=== PATIENT | female | born 1985 | race Caucasian/White ===

== ENCOUNTER → 2019-12-07 12:50 | Outpatient (BNVA) | payer BC, SELFPAY | PROVIDERS: Family Provider Family Medicine; Visit Provider Obstetrics & Gynecology | DX: Z78.9 Other specified health status (principal); Z12.4 Encounter for screening for malignant neoplasm of cervix; N81.10 Cystocele, unspecified; N39.3 Stress incontinence (female) (male) | CPT/HCPCS: 88175 ==

== ENCOUNTER 2020-01-02 10:32 | Observation (INO) | payer BC, SELFPAY ==
[2020-01-01 10:42] VITALS: BMI 29.5
--- NOTE | 2020-01-01 10:56 | P.ANESASSM_ITS ---
Pre-Anesthetic Assessment Pre-Anesthetic Assessment: Height/Weight: Height 1.55 m Weight 70.76 kg Preop Diagnosis: Incontinence Proposed Procedure: Operation Date: 01/02/20 08:15 Proposed Procedures p Anterior Repair Anterior Colporrhaphy 09104 93143 N81.10 N39.3(Not Applicable) - Good Jimenez MD s Sling midurethral(Not Applicable) - Good Jimenez MD Familial anesthetic complications: No trouble Social: Social History: No alcohol and No tobacco Exam: Pre-Anes Outpt Exam: alert, oriented x 3, clear to auscultation bilaterally and regular rate & rhythm Airway: Cervical ROM: WNL MP: 2 Dentition: Full Pulmonary: Pulmonary: None reported CV/HEM: CV/HEM: None reported : : None reported Hepatic: Hepatic: None reported GI: GI: None reported Metabolic: Metabolic: None reported Musc/skel: Musc/skel: None reported Neuropsych: Neuropsych: None reported Anesthetic Plan: ASA status: 1 Anesthesia: General Risk of > 500 ml blood loss (7ml/kg in children): No PFSH Anesthesia PFSH: Social History Smoking and tobacco status: never smoked Alcohol intake: never 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
[2020-01-01 11:02] LABS: OR HCG Qualitative Urine Negative (Negative)
[2020-01-02] VITALS (17 sets, daily range): BP systolic 94–128; BP diastolic 61–83; PULSE 70–124; RESP 13–18; TEMP 36.4–37.3; O2SAT 96–100
--- NOTE | 2020-01-02 07:14 | W.PM.OPSUD ---
Surgery/Procedure H&P Update DATE OF PROCEDURE: January 02, 2020 DATE H&P PERFORMED: 12/24/19 H&P UPDATE INFORMATION: I have reviewed H&P completed within last 30 days and I have examined patient prior to procedure PREOP DIAGNOSIS: Cystocele stage III PLANNED PROCEDURE: Operation Date: 01/02/20 08:15 Proposed Procedures p Anterior Repair Anterior Colporrhaphy [id number] N81.10 N39.3(Not Applicable) - Good Jimenez MD s Sling midurethral(Not Applicable) - Good Jimenez MD
[2020-01-02 07:17] LABS: OR HCG Qualitative Urine Negative (Negative)
[2020-01-02] MEDS: ketorolac 30 mg/mL INJ IVP ×4 (07:29→23:26)
[2020-01-02] MEDS: scopolamine 1.5 Patch 1 PATCH TRANSDERMA (07:29)
[2020-01-02] MEDS: sodium chloride 0.9% 1,000 ML 30 ML IV (07:29)
[2020-01-02 07:40] LABS: Basophils % 0.2 %; Eosinophils # 0.1 10^3/uL (0.0-0.8); Eosinophils % 1.7 %; Hematocrit 38.9 % (37.0-47.0); Hemoglobin 12.6 g/dL (11.5-15.3); Lymphocytes # 1.8 10^3/uL (0.8-4.8); Lymphocytes % 21.7 %; Mean Corpuscular HGB Conc 32.4 g/dL (30.0-36.0); Mean Corpuscular Hemoglobin 28.3 pg (28.0-34.0); Mean Corpuscular Volume 87.4 fL (81-99); Mean Platelet Volume 10.1 fL (7.4-10.4); Monocytes # 0.5 10^3/uL (0.2-0.9); Neutrophils # 5.8 10^3/uL (1.8-7.7); Nucleated Red Blood Cells % 0 %; Platelet Count 272 10^3/cmm (130-400); Red Blood Count 4.45 10^6/uL (4.1-5.3); Red Cell Distribution Width 13.3 % (12.1-15.1); White Blood Count 8.2 10^3/uL (4.0-10.0)
--- NOTE | 2020-01-02 07:52 | P.ANESUD_ITS ---
Pre-Anesthetic Update Pre-Anesthetic Assessment: Date of Surgery/Procedure: 01/02/20 Preop Thuy gnosis: Cystocele stage III Proposed Procedure: Operation Date: 01/02/20 08:15 Proposed Procedures s Anterior Repair Anterior Colporrhaphy [id number] N81.10 N39.3(Not Applicable) - Good Jimenez MD s Sling midurethral(Not Applicable) - Good Jimenez MD p Total Vaginal Hysterectomy(Not Applicable) - Good Jimenez MD Any changes to Pre-Anesthetic Assessment?: No Last Intake: Intake Last Liquid Date 01/01/20 Last Liquid Time 22:00 Last Solid Date 01/01/20 Last Solid Time 22:00 Labs Last 48hrs: Laboratory Results - last 48 hr 01/01/20 01/02/20 01/02/20 10:48 06:57 07:13 WBC 8.2 RBC 4.45 Hgb 12.6 Hct 38.9 MCV 87.4 MCH 28.3 MCHC 32.4 RDW 13.3 Plt Count 272 MPV 10.1 Neut % (Auto) 70.0 Lymph % (Auto) 21.7 [place] % (Auto) 6.0 Eos % (Auto) 1.7 Baso % (Auto) 0.2 Neut # (Auto) 5.8 Lymph # (Auto) 1.8 [place] # (Auto) 0.5 Eos # (Auto) 0.1 Baso # (Auto) 0.0 Nucleated RBC % (a uto) 0 Nucleated RBCs # 0.0 Urine HCG, Qual Negative Negative Vitals: Temperature 98.0 F 01/02/20 07:03 Temperature Source Temporal Artery S can 01/02/20 07:03 Pulse Rate 79 01/02/20 07:03 Pulse Rhythm 01/02/20 07:03 Pulse Strength 3+ Normal 01/02/20 07:03 Respiratory Rate 18 01/02/20 07:03 Blood Pressure 128/75 01/02/20 07:03 Blood Pressure Lacie n 92 01/02/20 07:03 Pulse Oximetry 100 01/02/20 07:03 Oxygen Delivery Me thod 01/02/20 07:03 Exam: Pre-Anes Outpt Exam: alert, oriented x 3, clear to auscultation bilaterally and regular rate & rhythm Cardiac Studies: No Data to Display
[2020-01-02 07:55] LABS: Alanine Aminotransferase 7 U/L (0-33); Albumin Level 4.7 g/dL (3.5-5.2); Alkaline Phosphatase 84 IU/L (35-105); Anion Gap 12.9 (5-19); Aspartate Amino Transferase 15 U/L (0-32); Blood Urea Nitrogen 11 mg/dL (6-20); Calcium 9.6 mg/dL (8.5-10.5); Carbon Dioxide 25 mmol/L (22-29); Chloride 104 mmol/L (98-107); Globulin 3.2 g/dL (1.3-4.6); Glomerular Filtration Rate 81.2 mL/min (90-130); Glucose 89 mg/dL (65-115); Osmolality Calculated 282 mOsm/kg (285-295); Potassium 3.9 mmol/L (3.5-5.1); Sodium 138 mmol/L (136-145); Total Bilirubin 0.2 mg/dL (0.15-1.2); Total Protein 7.9 g/dL (6.6-8.7)
--- NOTE | 2020-01-02 08:54 | SUR.OPER ---
murdock inserted by dr. stevens
[2020-01-02] MEDS: estrogens Conjugated Cream 30 gm 1 APPLIC VAGINAL (09:52)
--- NOTE | 2020-01-02 10:31 | SUR.PHASEI ---
1029 PATIENT TO PACU AT THIS TIME. RR EVEN AND UNLABORED, PLACED ON SIMPLE MASK AT 8L, SPO2 100%. PATIENT NOTED TO BE SLEEPING, PROTECTING AIRWAY. SPEARS CATH IN PLACE.
--- NOTE | 2020-01-02 10:35 | P.OP_ITS ---
Operative Report Date of procedure: January 02, 2020 Pre-op Diagnosis: Cystocele stage III Post-op diagnosis: same Procedure Done: total vaginal hysterectomy. Anterior colporrhaphy with mid urethral sling. Specimens removed/disposition: The uterus Surgeon: Good Jimenez Anesthesia: General Estimated blood loss (mL): 200 IV fluids (mL): 850 Urine output (mL): 100 Complications: none Condition: stable Disposition: PACU Brief History: 34-year-old female with urinary stress incontinence, cystocele stage III. Procedure: After informed consent and risks, benefits, indications and alternatives reviewed with the patient was taken to the operating room. The patient was placed in dorsal lithotomy position prepped, and draped in the usual sterile fashion. The pre-procedure timeout verifying the correct patient, procedure, site and side, could not requirements was performed and acknowledge by the OR team. A Perez catheter was placed. A Bookwalter vaginal retractor was placed into the vagina in usual manner visualize the cervix. Cervix was grasped with a single tooth tenaculum and circumferentially infiltrated with 1% Xylocaine with epinephrine. Then cervix was circumferentially incised with bovie and the bladder was dissected off the pubovesical cervical fascia ant eriorly with a sponge stick and Metzenbaum scissors. The anterior peritoneal reflection was identified and the anterior cul-de-sac was entered sharply with Metzenbaum scissors. The same procedure was performed posteriorly and a posterior colpotomy was made through the posterior cul-de-sac space without difficulty and the posterior blade of the Bookwalter vaginal retractor was advanced posteriorly into the cul-de-sac. At this time, the left and right uterosacral ligaments were isolated and ligated with 0 Vicryl. The Enseal device was placed over the uterosacral ligaments on either side and was then used in a serial fashion up through the cardinal ligaments bilaterally cross-clamped, cut, and sealed with the Enseal device. Finally, the uterine arteries were cross-clamped, cut, sealed and ligated with the Enseal device. Hemostasis was assured. The broad ligaments were then serially clamped, sealed and cut with the Enseal device on both sides. Excellent hemostasis was visualized. Both cornua were clamped, sealed and cut with the Enseal device. Then the pedicles were then suture ligated with excellent hemostasis. The uterus was excised and submitted for pathologic evaluation. No other abnormalities were noted in the pelvic cavity. The peritoneum was then closed in a pursestring fashion with 0 Vicryl suture. The vaginal cuff angles were closed with [id number] #0 Vicryl suture on both sides and transfixed with the ipsilateral cardinal and uterosacral ligaments. The patient was given indigo carmine. The remainder of the vaginal cuff was closed with #0 Vicryl in a running locked fashion. Then proceeded to perform the mid urethral sling and anterior colporrhaphy. A vertical midline incision was made beneath the midurethra, nearly 1.5 cm length. Careful submucosal dissection was performed bilaterally up to the interior portion of the inferior pubic ramus. The insertion of adductor longus tendon on the patient?s pubic ramus was identified as reference land jose. Palpated the notch along the internal edge of ischiopubic ramus where the adductor longus tendon and the inferior pubic ramus meet. The needle of the SIS inserted aiming at the location of this notch. One of the integrated self- fixating tips place onto the needle by sliding it over the end of the needle. The needle/sling assembly was inserted toward the location of identified reference notch making sure that the flat of the handle is perpendicular to the desired path. The needle was tracked along the posterior surface of the ischiopubic ramus until the midline jose on the mesh is approximately at the midline position under the urethra. The needle was removed and the same was repeated on the contralateral side until the appropriate sling tension under the urethra was achieved ensuring that the mesh lays flat. The needle was removed and vaginal incision was closed in a running interlocking fashion with 2-0 Vicryl. Then vaginal mucosa was then injected in the midline with normal saline. The vaginal mucosa was scored in the midline with the Bovie approximately 1 cm medial to the urethral meatus to 1 cm distal to the [vaginal cuff/cervix]. This vaginal mucosa was then undermined and then incised in the midline with the Metzenbaum scissors. The lateral aspects of the vaginal mucosa were then grasped with the Allis clamps and the vaginal mucosa was then dissected off the underlying fascia with the Metzenbaum scissors. Again, there was noted to be quite a bit of oozing at the incision, which was controlled with cautery. After adequate dissection was performed, bilaterally. Suture is placed at distal end of graft and placed towards vaginal cuff. Final suture is placed on proximal portion of the graft to complete the placement overlying the bladder. Then Interrupted vertical mattress sutures of 0 Vicryl were used to elevate the cystocele superiorly. The excessive vaginal mucosa was then trimmed with the Metzenbaum scissors and the vaginal mucosa was then reapproximated in the running interlocking fashion with 2-0 Vicryl. At this time, instruments were removed from the vagina at hemostasis assured. Then the Perez catheter was removed and cystoscope was inserted. The bladder was filled with sterile water. Complete evaluation of the bladder mucosa was performed noting no lacerations, dimpling, tears, bleeding of the mucosa or muscular layers. Both ureteral orifices were identified. Prompt excretion of blue urine from both ureteral orifices was noted. Cystoscope was withdrawn. Perez catheter was then placed yielding clear kirsty urine. A vaginal packing wi th Premarin cream was placed and the patient was taken out of dorsal lithotomy position and awakened from the general anesthesia. The patient tolerated the procedure well and was taken to the PACU recovery room in a stable condition. Sponge, lap, needle and instruments counts were correct x3.
--- NOTE | 2020-01-02 11:00 | SUR.PHASEI ---
1059 PATIENT TO OB AT THIS TIME. RR EVEN AND UNLABORED. SPEARS IN PLACE. PATIENT TOLERATING ICE CHIPS, DENIES PAIN.
--- NOTE | 2020-01-02 11:04 | PM.PACU ---
PACU note Post-Anesthesia Exam: awake and vital signs stable Disposition: discharged
[2020-01-02] MEDS: ondansetron 2 mg/ML SDV 2 mL 4 MG IVP (11:34)
[2020-01-02] MEDS: HYDROcodone-acetaminophen 5-325 mg Tablet PO ×3 (11:35→22:38)
[2020-01-02] MEDS: oxyCODONE-APAP 5-325 mg Tablet PO (17:49)
[2020-01-02] MEDS: docusate sodium 100 mg Capsule PO (17:50)
[2020-01-02] MEDS: dextrose 5%-lactated ringers 1,000 ML 125 ML IV ×2 (17:50→23:27)
[2020-01-03 05:27] VITALS: BP 97/62; PULSE 68; RESP 18; TEMP 37.1
[2020-01-03] MEDS: ketorolac 30 mg/mL INJ IVP (05:37)
[2020-01-03 05:42] LABS: Hematocrit 27.4 % (37.0-47.0); Mean Corpuscular HGB Conc 32.8 g/dL (30.0-36.0); Mean Corpuscular Hemoglobin 29.2 pg (28.0-34.0); Platelet Count 188 10^3/cmm (130-400); Red Blood Count 3.08 10^6/uL (4.1-5.3); Red Cell Distribution Width 13.6 % (12.1-15.1); White Blood Count 10.3 10^3/uL (4.0-10.0)
[2020-01-03] MEDS: docusate sodium 100 mg Capsule PO (09:43)
[2020-01-03] MEDS: HYDROcodone-acetaminophen 5-325 mg Tablet PO ×2 (09:43→16:05)
[2020-01-03 09:45] VITALS: BP 99/64; PULSE 111; RESP 16; TEMP 36.8; O2SAT 98
--- NOTE | 2020-01-03 10:20 | PC.NURSE ---
01/03/[address] Jimenez regarding removing patient's murdock and vaginal packing. Dr. Jimenez states that is fine. Patient may also undergo bladder trials per protocol. Patient must have less than 150ml residual post void.
--- NOTE | 2020-01-03 10:21 | PC.NURSE ---
01/03/2020 0948 Perez catheter removed, vaginal packing removed. Patient educated extensively on bladder trials per protocol and verbalized understanding. Patient provided several liquids and hat placed in toilet. Will continue to monitor and follow up as needed.
--- NOTE | 2020-01-03 11:01 | PM.OBGYDC ---
Discharge Providers CLINICAL ATHLETIC INSTRUCTOR Date of Admission: 01/02/20 10:32 Date of Discharge: 01/03/20 Attending Provider at Admission: Good Jimenez MD Attending Provider at Discharge: Good Jimenez MD Primary Care Provider: Brian Arauz MD Diagnoses at Discharge Discharge Diagnosis (1) POP-Q stage 2 cystocele: Status: Acute Problem details: patient is status post total vaginal hysterectomy with anterior colporrhaphy and mid urethral sling. (2) TAJ (stress urinary incontinence, female): Status: Acute Reason for Visit Reason for Visit: Reason For Visit: Cystocele statge 2 stress urinary incontinence Hospital Course Hospital Course: the patient was admitted for planned total vaginal hysterectomy with anterior colporrhaphy and mid urethral sling. The procedures were performed without complication overnight observation was uneventful. ER within normal limits. Is afebrile hemodynamically stable. Tolerating diet well. Ambulating without difficulty. Pain under control with medication. Physical Exam Narrative: EXAM NARRATIVE: GA: Alert and oriented ?3. HEENT: WNL. Heart: Regular rate and rhythm. Lungs: Clear to auscultation bilaterally. Abdomen: Bowel sounds present, nontender, minimal tenderness. COFFIN MAKER: minimal spotting bleeding. Extremities: No edema, no cyanosis, no calves pain. Urinary Catheter Management^: Perez: Cath Placed During This Visit: yes Urinary Catheter Date of Insertion: 01/02/20 Urinary Catheter Time of Insertion: 09:00 Discharge Data Data Completed and Pending: Labs from last 24 hours 01/03/20 05:26 WBC 10.3 H RBC 3.08 L Hgb 9.0 L Hct 27.4 L MCV 89.0 MCH 29.2 MCHC 32.8 RDW 13.6 Plt Count 188 MPV 10.0 Vitals: Last Vital Signs Temp 98.3 F 01/03/20 09:45 Pulse 111 H 01/03/20 09:45 Resp 16 01/03/20 09:45 BP 99/64 01/03/20 09:45 Pulse Ox 98 01/03/20 09:45 Discharge Plan Discharge Patient Disposition: Home, Self-Care Condition: Stable Prescriptions: [place] 5-325 mg tablet 1 tab PO Q4H PRN (Reason: pain) Qty: 30 RF: 0 Continued ferrous sulfate 325 mg (65 mg iron) tablet 65 mg PO BID RF: 0 Discharge Orders: Discharge Order (Routine); Ordered 01/03/20 Ordered By: Good Jimenez Discharge Diet: Regular Discharge Activity: Increase activity as tolerated Activity Restrictions/Additional Instructions: Pelvic rest for 6 weeks (no sex, no tampons, no vaginal douches). Return to the emergency room if any fever, increased bleeding or pain. Discharge Attestations CLINICAL ATHLETIC INSTRUCTOR Time Spent in Discharge Care*: greater than 30 min Specific Discharge Activities: Specific discharge activities: educating patient and educating and/or supporting family/caregiver Time Spent in Smoking Cessation: Time spent discussing smoking cessation with patient: 3 to 10 minutes Coding Level of Care Code Acute Still Cleaner for Chg Fwd History Expanded Problem Focused Exam Expanded Problem Focused Medical Decision Making Moderate Complexity Diagnoses POP-Q stage 2 cystocele N81.10 TAJ (stress urinary incontinence, female) N39.3 Time Spent (min) 50
--- NOTE | 2020-01-03 14:48 | ANE.PACU2 ---
 Inpatient post-anesthesia follow up: Airway intact: Yes Vital signs: Temperature 98.3 F Pulse Rate 111 Respiratory Rate 16 Blood Pressure 99/64 Pulse Oximetry 98 Oxygen Delivery Me thod Room Air Oxygen Flow Rate 8 Fraction of Inspir ed Oxygen Hydration adequate: Yes Nausea and vomiting: No Pain level: 4 Mental status: Baseline
[2020-01-03 16:00] VITALS: BP 109/71; PULSE 105; RESP 18; TEMP 36.8; O2SAT 97
[2020-01-03 16:12] VITALS: BP 109/71; PULSE 105; RESP 18; TEMP 36.8; O2SAT 97
== END 2020-01-03 16:13 | disposition home or self-care (01) ==
LOC: OBGYN 10:33
PROVIDERS: Anesthesiology; Admitting Provider Obstetrics & Gynecology; PCP Family Medicine; Visit Provider Obstetrics & Gynecology
PROC: 0JQC0ZZ Repair Pelvic Region Subcutaneous Tissue and Fascia, Open Approach (ICD-10-PCS; CPT 57240; principal; 2020-01-02 08:15)
PROC: (CPT 57288; 2020-01-02 08:15)
PROC: 0TJB8ZZ Inspection of Bladder, Via Natural or Artificial Opening Endoscopic (ICD-10-PCS; CPT 52000; 2020-01-02 08:15)
DX: N81.10 Cystocele, unspecified (principal); N39.3 Stress incontinence (female) (male); I10 Essential (primary) hypertension; Z82.49 Family history of ischemic heart disease and other diseases of the circulatory system
CPT/HCPCS: 57240; 57267; 57288; 58260; 12345; 36415; 51798; 80053; 81025; 84703; 85025; 85027; 86850; 86900; 88307; 96360; 96361; 96374; 96375; C1713; G0378; J0690; J1100; J1885; J2001; J2250; J2405; J2704; J3010; J3490; J7030

== ENCOUNTER → 2021-03-02 16:57 | Outpatient (BNVA) | payer OTHER, SELFPAY | PROVIDERS: PCP Family Medicine; Visit Provider Nurse Practitioner Family | DX: L30.9 Dermatitis, unspecified (principal) | CPT/HCPCS: 80053; 84443; 85025 ==

== ENCOUNTER → 2022-02-24 10:14 | Outpatient (BNVA) | payer SELFPAY | PROVIDERS: PCP Family Medicine; Visit Provider Family Medicine | DX: G57.93 Unspecified mononeuropathy of bilateral lower limbs (principal); R60.9 Edema, unspecified | CPT/HCPCS: 80053; 82306; 82607; 83540; 84443; 85025 ==

== ENCOUNTER → 2022-06-08 15:59 | Outpatient (BNVA) | payer OTHER, SELFPAY | PROVIDERS: PCP Family Medicine; Referring Provider Family Medicine; Visit Provider Podiatrist Foot & Ankle Surgery | DX: M72.2 Plantar fascial fibromatosis (principal) | CPT/HCPCS: 73630 ==

== ENCOUNTER → 2022-07-07 11:12 | Outpatient (BNVA) | payer OTHER, SELFPAY | PROVIDERS: PCP Family Medicine; Visit Provider Nurse Practitioner Family | DX: Z20.822 Contact with and (suspected) exposure to COVID-19 (principal); J06.9 Acute upper respiratory infection, unspecified | CPT/HCPCS: 87426 ==

== ENCOUNTER 2022-08-09 15:41 | Outpatient (CLI) | payer OTHER, SELFPAY | END 2022-08-09 15:42 | disposition home or self-care (01) | LOC: SPT 15:42 | PROVIDERS: PCP Family Medicine; Visit Provider Podiatrist Foot & Ankle Surgery | DX: Z46.89 Encounter for fitting and adjustment of other specified devices (principal); M72.2 Plantar fascial fibromatosis | CPT/HCPCS: 97760; L4397 ==

== ENCOUNTER → 2022-08-24 10:20 | Outpatient (BNVA) | payer SELFPAY | PROVIDERS: PCP Family Medicine; Visit Provider Nurse Practitioner Family | DX: R05.9 Cough, unspecified (principal); J06.9 Acute upper respiratory infection, unspecified | CPT/HCPCS: 87400; 87426 ==

== ENCOUNTER 2023-09-07 15:57 | Outpatient (CLI) | payer OTHER, SELFPAY ==
--- NOTE | 2023-09-07 16:00 | CTR_ITS ---
PROCEDURE INFORMATION: Exam: CT Abdomen And Pelvis With Contrast Exam date and time: 09/07/2023 5:03 PM Age: 38 years old Clinical indication: Abdominal pain; Additional info: R10.9 - unspecified abdominal pain TECHNIQUE: Imaging protocol: Computed tomography of the abdomen and pelvis with contrast. Radiation optimization: All CT scans at this facility use at least one of these dose optimization techniques: automated exposure control; mA and/or kV adjustment per patient size (includes targeted exams where dose is matched to clinical indication); or iterative reconstruction. Contrast material: OMNIPAQUE 350; Contrast volume: 3 ml; Contrast route: INTRAVENOUS (IV); REPORTING DATA: Count of CT and Cardiac NM exams in prior 12 months: This patient has received 0 known CTs and 0 known cardiac nuclear medicine studies in the 12 months prior to the current study. COMPARISON: No relevant prior studies available. RADIATION DOSE METRICS: Total DLP (mGy-cm): 298.1 FINDINGS: Liver: Normal. No mass. Gallbladder and bile ducts: Normal. No calcified stones. No ductal dilation. Pancreas: Normal. No ductal dilation. Spleen: Normal. No splenomegaly. Adrenal glands: Normal. No mass. Kidneys and ureters: Normal. No hydronephrosis. Stomach and bowel: Unremarkable. No obstruction. No mucosal thickening. Appendix: No evidence of appendicitis. Intraperitoneal space: Unremarkable. No free air. No significant fluid collection. Vasculature: Unremarkable. No abdominal aortic aneurysm. Lymph nodes: Unremarkable. No enlarged lymph nodes. Urinary bladder: Unremarkable as visualized. Reproductive: Unremarkable as visualized. Bones/joints: Unremarkable. No acute fracture. Soft tissues: Unremarkable. CT/CT abdomen pelvis w con* [id number] IMPRESSION: The findings are normal.
[2023-09-07] MEDS: iohexol 350 mg/mL 500 mL Btl (per mL) PO (16:13)
[2023-09-07] MEDS: iohexol 350 mg/mL 500 mL Btl (per mL) IV (17:07)
== END 2023-09-07 15:58 | disposition home or self-care (01) ==
LOC: RAD 15:58
PROVIDERS: PCP Family Medicine; Visit Provider Family Medicine
DX: R10.9 Unspecified abdominal pain (principal)
CPT/HCPCS: 74177; Q9967

== ENCOUNTER → 2025-01-08 10:58 | Outpatient (BNVA) | payer OTHER, SELFPAY | PROVIDERS: PCP Family Medicine; Visit Provider Nurse Practitioner Family | DX: R51.9 Headache, unspecified (principal) | CPT/HCPCS: 80053; 85025; 85651; 86140 ==

== ENCOUNTER → 2025-03-12 12:12 | Outpatient (BNVA) | payer OTHER, SELFPAY | PROVIDERS: PCP Family Medicine; Visit Provider Nurse Practitioner Family | DX: R10.9 Unspecified abdominal pain (principal) | CPT/HCPCS: 80053; 81000; 85025 ==

== ENCOUNTER 2025-05-18 13:25 | Emergency (ER) | payer OTHER, SELFPAY ==
[2025-05-18 13:28] VITALS: BP 122/80; PULSE 78; RESP 16; TEMP 36.7; O2SAT 99; BMI 26.0
--- OUTSIDE RECORDS SUMMARY | 2025-05-18 13:29 | XMS_ITS | Clinical Summary ---
[facility] [address] [place] [address] Phone Care Team Providers Care Personal Financial Advisor Name Role Phone Unavailable Primary Care Provider Unavailabl e Encounters Date Type Department Care Team Description 05/08/2025 External Device Data [facility] ABSTRACTION Provider, Abstract 05/07/2025 External Device Data [facility] ABSTRACTION Provider, Abstract 04/09/2025 External Device Data [facility] ABSTRACTION Provider, Abstract 03/19/2025 External Device Data [facility] ABSTRACTION Provider, Abstract 03/19/2025 External Device Data [facility] ABSTRACTION Provider, Abstract 03/19/2025 External Device Data STL ABSTRACTION Provider, Abstract 03/14/2025 Telephone [facility] [address] [address] Michelle Jarrell MD Referral from Last 3 Months Social History Tobacco Use Types Packs/Day Years Used Date Smoking Tobacco: Never Assessed Comments Unknown Sex and Gender Information Value Date Recorded Sex Assigned at Not on file 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 Gender Identity Not on file Sexual Orientation Not on file Plan of Treatment Upcoming Encounters Date Type Department Care Team (Late st Contact Info) Description 06/12/2025 8:30 AM CDT Appointment [facility] [address] [place] [address] Michelle Jarrell MD [address] [facility] [address] [place] [address] 07/11/2025 10:00 AM CDT Office Visit [facility] [address] [facility] [address] [place] [address] Michelle Jarrell MD [address] [facility] [place] [address] [place] [address] Health Maintenance Due Date Last Done Comments HPV VACCINES (1 - 3-dose series) 1998 DTAP/TDAP/TD VACCINES (1 - Tdap) 2002 HEPATITIS B VACCINES (1 of 3 - 19+ 3-dose series) 12/23 HPV/Cotest (21-29) 01/17/2004 CERVICAL CANCER SCREENING 2013 HPV/Cotest (30-65) 2013 PAP SMEAR 2013 BREAST CANCER SCREENING 2023 INFLUENZA VACCINE (#1) 2025 Insurance [facility] [id number] KOLBY WIGGINS [id number] [facility] [id number]
[2025-05-18 13:58] LABS: Hematocrit 39.9 % (36-47); Hemoglobin 13.40 g/dL (11.27-16.99); Mean Corpuscular HGB Conc 33.6 g/dL (30-55); Mean Corpuscular Hemoglobin 30.7 pg (27-33); Mean Corpuscular Volume 91.5 fl (85-98); Nucleated Red Blood Cells % 0 %; Platelet Count 239 10^3/cmm (157-399); Red Blood Count 4.36 10^6/uL (3.85-5.65); White Blood Count 8.39 10^3/uL (3.29-11.43)
[2025-05-18 14:09] LABS: HCG, Serum Qual Negative (Negative)
[2025-05-18 14:20] LABS: Alanine Aminotransferase 10 U/L (0-33); Albumin Level 4.2 g/dL (3.5-5.2); Alkaline Phosphatase 63 U/L (35-105); Anion Gap 17.0 (5-19); Aspartate Amino Transferase 12 U/L (0-32); Blood Urea Nitrogen 11 mg/dL (6-20); Calcium 9.2 mg/dL (8.5-10.5); Carbon Dioxide 23 mmol/L (22-29); Chloride 105 mmol/L (98-107); Creatinine Clr Calc Pharmacy 69.0547; Globulin 2.9 g/dL (1.3-4.6); Glucose 87 mg/dL (65-115); Lipase 55 U/L (13-60); Osmolality Calculated 291 mOsm/kg (285-295); Potassium 4.0 mmol/L (3.5-5.1); Sodium 141 mmol/L (136-145); Total Protein 7.1 g/dL (6.6-8.7)
--- NOTE | 2025-05-18 14:27 | CTR_ITS ---
PROCEDURE INFORMATION: Exam: CT Abdomen And Pelvis With Contrast Exam date and time: 05/18/2025 2:49 PM Age: 40 years old Clinical indication: Abdominal pain; Additional info: Rlq, ruq, epigastric pain/tenderness TECHNIQUE: Imaging protocol: Computed tomography of the abdomen and pelvis with contrast. Radiation optimization: All CT scans at this facility use at least one of these dose optimization techniques: automated exposure control; mA and/or kV adjustment per patient size (includes targeted exams where dose is matched to clinical indication); or iterative reconstruction. Contrast material: OMNI 350; Contrast volume: 100 ml; Contrast route: INTRAVENOUS (IV); COMPARISON: CT abdomen pelvis w con* [id number] 09/07/2023 5:03 PM RADIATION DOSE METRICS: Total DLP (mGy-cm): 425.02 FINDINGS: Liver: Normal. No mass. Gallbladder and biliary ducts: Normal. No calcified stones. No ductal dilation. Pancreas: Normal. No ductal dilation. Spleen: Normal. No splenomegaly. Adrenal glands: Normal. No mass. Kidneys and ureters: Normal. No hydronephrosis. Stomach and bowel: There is excessive colonic stool content. Appendix: No evidence of appendicitis. Intraperitoneal space: Unremarkable. No free air. No significant fluid collection. Vasculature: There are numerous benign phleboliths in the pelvis. Lymph nodes: Unremarkable. No enlarged lymph nodes. Urinary bladder: Unremarkable as visualized. Reproductive: Unremarkable as visualized. Bones/joints: There are mild degenerative changes of the sacroiliac joints. Soft tissues: There is a fat-containing umbilical hernia. CT/CT abdomen pelvis w con* [id number] IMPRESSION: 1. No acute intra-abdominal process. 2. Mild constipation.
--- NOTE | 2025-05-18 14:30 | ED_ITS ---
HPI - Abdominal Pain 2 General: Chief Complaint: Abdominal Pain Stated Complaint: abd pain Time Seen by Provider: 05/18/25 14:01 Source: patient Mode of arrival: ambulatory Limitations: no limitations History of Present Illness: Patient is a 40-year-old female that presents to the emergency department with worsening upper abdominal pain after she eats. The patient states the symptoms have been ongoing for the last few days. The patient states she still has her gallbladder and appendix. She denies any history of pancreatitis. The patient states she has never been a smoker. She states pain is worse when she eats. She denies any fever or chills. She declines any pain medications or nausea medicines at this time. She presents to the emergency department for further evaluation and treatment. Associated Symptoms: Reports nausea; Denies chills, dysuria, fever(s) and vomiting Related Data Previous Rx's ?Medication ?Instructions ?Recorded hydrocodone 5 mg-acetaminophen 325 1 tab PO Q4H PRN pa in #10 tabs 05/18/25 mg tablet ondansetron 4 mg disintegrating 4 mg PO .q6-8h PRN azalia sea and 05/18/25 tablet vomiting #10 tabs Allergies Allergy/AdvReac Type Severity Reaction Status Date / Time No Known Allergies Allergy Verified 03/12/25 11:34 Review of Systems 2 General: Reports: 10 or more systems reviewed and unremarkable except in HPI and below Const: Denies: fever(s) or chills Eyes: Denies: eye discharge or eye redness ENMT: Denies: throat pain, mouth pain or swelling of lips/tongue Card: Denies: chest pain Resp: Denies: dyspnea, productive cough or non-productive cough GI: Reports: abdominal pain (Upper abdomen) and nausea; Denies: vomiting : Denies: flank pain, difficulty voiding or dysuria Musc: Reports: back pain (Mid back); Denies: neck pain Skin/Breast: Denies: rash, pruritus or erythema Neuro: Denies: headache(s) Psych: Denies: anxiety Endo: Denies: polyuria or polydipsia Jose Manuel/Lymph: Denies: petechiae All/Imm: Denies: urticaria or tongue swelling PFSH ED 2 PFSH: Medical History Patient denies medical problems Patient denies history of PE/DVT/clotting disorders, asthma, lung, liver heart, thyroid, kidney disease, hypertension or diabetes. PCP: Dr. Dia Vaginal prolapse 07/30/2019---grade 0-1 cystocele, grade 0-1 uterine prolapse; grade 1-2 rectocele Discussed with her that on my exam today she had grade 0-1 cystocele, grade 0-1 uterine prolapse; grade 1-2 rectocele. Discussed with her the pathophysiology of prolapse--> prolapse was caused by conditions such as chronic heavy lifting, chronic cough, chronic nausea/vomiting, chronic sneezing, obesity, vaginal deliveries, et cetera. Discussed that sometimes prolapse symptoms get worse after menopause. Review of the symptoms of prolapse-difficulty passing urine, leakage of urine, pressure symptoms, difficulty passing stool, etc. Reviewed the treatment options for prolapse- pessary or surgery--> there are no medical options. Discussed that the kind of surgery depends upon the degree of prolapse and what organs have prolapsed. I briefly reviewed surgical procedure, risks, postoperative recovery and restrictions. Discussed pessaries and I showed her pictures of these as well. -Discussed that based on her symptoms it sounds like she may be feeling some of the rectocele especially after straining as she does not noticed this bulge routinely-only after a bowel movement. Discussed I would strongly recommend getting her constipation issues under control as even if she needs to have surgery dating constipation controlled is going to be important to allow good recovery from surgery and prevent recurrence of the rectocele in the future. She understands this. -Discussed pelvic floor exercises in detail with patient -She will follow-up by phone in 1-2 months and during this time will focus on doing pelvic floor exercises and trying to get constipation under control. If she is still symptomatic at that time we can consider scheduling her for surgery. She is agreeable with this plan of care and all her questions were answered to her satisfaction. Hypertension Iron deficiency anemia Surgical History History of midurethral sling procedure History of partial hysterectomy 2020 History of knee surgery Left knee, open surgery for torn ligament History of tubal ligation Laparoscopic bilateral fallopian injury sterilization performed by Dr. Plascencia on 12/11/2004. Operative reports have been reviewed and scanned into the chart Family History Mother Hypertension Heart disease Family/Other Breast cancer Maternal great aunt Unknown Patient denies medical problems Denies family history of: Diabetes, Stroke, Hypercholesterolemia, Thyroid Problems, Ovarian Cancer, Uterine Cancer, Colon Cancer Social History Smoking and tobacco/nicotine status: never used tobacco/nicotine Second hand smoke exposure: No Alcohol intake: never Substance/Drug Use: never Lives independently: Yes Household members: spouse Marital status: service: No Current occupational status: unemployed Current gender identity: Female Special flavia needs: No Agree to transfusion: Yes Physical Exam 2 Const: COMMON NORMALS: no acute distress, no limitations and alert GENERAL APPEARANCE: cooperative ORIENTATION/CONSCIOUSNESS: Yes awake HENMT: COMMON NORMALS: normocephalic, atraumatic and Normal external nose present HEAD & SCALP: normocephalic and atraumatic NOSE: Normal external nose present TEETH & GINGIVA: Yes other (Mucous membranes are dry) THROAT: posterior oropharynx normal Eye: COMMON NORMALS: conjunctivae normal CONJUNCTIVA: Yes conjunctivae normal Neck/C-Spine: COMMON NORMALS: full ROM Resp: COMMON NORMALS: normal respiratory effort, No retractions and clear to auscultation bilaterally AUSCULTATION: clear to auscultation bilaterally, no crackles, no rales, no rhonchi and no wheezes Cardio: COMMON NORMALS: regular rate and regular rhythm RATE: regular rate RHYTHM: regular rhythm GI: COMMON NORMALS: Soft to palpation INSPECTION: No Abdominal wall edema and No Anasarca PALPATION: Yes Soft to palpation, Yes Tenderness to palpation present (GI) Details: RLQ, RUQ and other (Some epigastric tenderness) and No Rebound tenderness present RECTAL EXAM: deferred : COMMON NORMALS: Yes no CVA tenderness BLADDER/KIDNEY EXAM: Yes no CVA tenderness Back/Pelvis: COMMON NORMALS: no CVA tenderness GENERAL BACK: Yes tenderness (Mild tenderness in the mid thoracic region bilaterally) Extremity: COMMON NORMALS: normal to inspection and full ROM; negative for no calf tenderness and negative for no pedal edema GENERAL: Yes normal exam except as noted Neuro: COMMON NORMALS: moves all extremities SENSORIUM/ORIENTATION: Yes alert Psych: COMMON NORMALS: mental status grossly normal and cooperative A TTITUDE: Yes calm Skin: COMMON NORMALS: no rashes or lesions noted, no wounds and no petechiae GENERAL SKIN EXAM: no rashes or lesions noted Course 2 Vital Signs: Vital signs: Vital Signs Temperature 98.0 F 05/18/25 13:28 Pulse Rate 78 05/18/25 15:48 Respiratory Rate 16 05/18/25 15:48 Blood Pressure 119/88 05/18/25 15:48 Pulse Oximetry 99 05/18/25 15:48 Oxygen Delivery Me thod Room Air 05/18/25 15:48 MDM - Abdominal Pain Medical Decision Making Patient reports she is feeling better after the IV fluids and the Toradol. Thankfully, there is no acute findings on the CT scan. The patient does not have an elevated white blood cell count and her liver enzymes and bilirubin are all normal. The patient does not have have any signs of urinary tract infection. Patient was advised she will need to follow-up with general surgery as she may benefit from a HIDA scan to check the function of the gallbladder. This also could be due to the mild constipation that she has or a stomach virus. Patient was advised to use the medications as directed and follow-up as instructed. I recommended she follow a low-fat diet and return to the emergency department with any worsening symptoms. The patient expressed understanding. Differential Diagnosis Likely abdominal pain, acute appendicitis, calculus of kidney, constipation and pancreatitis Medical Records I reviewed the patient's medical records. Lab Data I reviewed the patient's lab results. 05/18/25 13:53 05/18/25 13:53 Labs/Radiology: Radiology Impressions Abdomen/Pelvis CT 05/18/25 14:27 IMPRESSION: 1. No acute intra-abdominal process. 2. Mild constipation. Laboratory Results WBC 8.39 10^3/uL (3.29-11.43) 05/18/25 13:53 RBC 4.36 10^6/uL (3.85-5.65) 05/18/25 13:53 Hgb 13.40 g/dL (11.27-16.99) 05/18/25 13:53 Hct 39.9 % (36-47) 05/18/25 13:53 MCV 91.5 fl (85-98) 05/18/25 13:53 MCH 30.7 pg (27-33) 05/18/25 13:53 MCHC 33.6 g/dL (30-55) 05/18/25 13:53 RDW 12.4 % (12.1-15.1) 05/18/25 13:53 Plt Count 239 10^3/cmm (157-399) 05/18/25 13:53 MPV 9.8 fL (7.4-10.4) 05/18/25 13:53 Neut % (Auto) 62.0 % 05/18/25 13:53 Lymph % (Auto) 29.4 % 05/18/25 13:53 [place] % (Auto) 6.2 % 05/18/25 13:53 Eos % (Auto) 1.3 % 05/18/25 13:53 Baso % (Auto) 0.7 % 05/18/25 13:53 Neut # (Auto) 5.20 10^3/uL (1.8-7.7) 05/18/25 13:53 Lymph # (Auto) 2.5 10^3/uL (0.8-4.8) 05/18/25 13:53 [place] # (Auto) 0.5 10^3/uL (0.2-0.9) 05/18/25 13:53 Eos # (Auto) 0.1 10^3/uL (0.0-0.8) 05/18/25 13:53 Baso # (Auto) 0.1 10^3/uL (0.0-0.1) 05/18/25 13:53 Nucleated RBC % (auto) 0 % 05/18/25 13:53 Nucleated RBCs # 0.0 /100WBC 05/18/25 13:53 Sodium 141 mmol/L (136-145) 05/18/25 13:53 Potassium 4.0 mmol/L (3.5-5.1) 05/18/25 13:53 Chloride 105 mmol/L (98-107) 05/18/25 13:53 Carbon Dioxide 23 mmol/L (22-29) 05/18/25 13:53 Anion Gap 17.0 (5-19) 05/18/25 13:53 BUN 11 mg/dL (6-20) 05/18/25 13:53 Creatinine 0.9 mg/dL (0.5-0.9) 05/18/25 13:53 GFR Calculation 68.7 mL/min (90-130) L 05/18/25 13:53 Glucose 87 mg/dL (65-115) 05/18/25 13:53 Calculated Osmolality 291 mOsm/kg (285-295) 05/18/25 13:53 Calcium 9.2 mg/dL (8.5-10.5) 05/18/25 13:53 Total Bilirubin 0.5 mg/dL (0.15-1.2) 05/18/25 13:53 AST 12 U/L (0-32) 05/18/25 13:53 ALT 10 U/L (0-33) 05/18/25 13:53 Alkaline Phosphatase 63 U/L (35-105) 05/18/25 13:53 Total Protein 7.1 g/dL (6.6-8.7) 05/18/25 13:53 Albumin 4.2 g/dL (3.5-5.2) 05/18/25 13:53 Globulin 2.9 g/dL (1.3-4.6) 05/18/25 13:53 Lipase 55 U/L (13-60) 05/18/25 13:53 HCG, Qual Negative (Negative) 05/18/25 13:53 Urine Color Yellow (Yellow) 05/18/25 15:10 Urine Appearance Clear (CLEAR) 05/18/25 15:10 Urine pH 6.0 (5-7) 05/18/25 15:10 Ur Specific [place] 1.019 (1.005-1.030) 05/18/25 15:10 Urine Protein Negative (Negative) 05/18/25 15:10 Urine Glucose (UA) Negative (Normal) 05/18/25 15:10 Urine Ketones Negative (Negative) 05/18/25 15:10 Urine Blood Negative (Negative) 05/18/25 15:10 Urine Nitrate Negative (Negative) 05/18/25 15:10 Urine Bilirubin Negative (Negative) 05/18/25 15:10 Urine Urobilinogen 1.0 mg/dL (Negative) 05/18/25 15:10 Ur Leukocyte Esterase Negative (Negative) 05/18/25 15:10 Urine RBC 0-2 /hpf (0-2) 05/18/25 15:10 Urine WBC 0-5 /hpf (0-5) 05/18/25 15:10 Ur Squamous Epith Cells 0-5 /hpf (0-5) 05/18/25 15:10 Amorphous Sediment Not Reportable 05/18/25 15:10 Urine Bacteria None seen /hpf (NONE) 05/18/25 15:10 Hyaline Casts 0.81 /lpf 05/18/25 15:10 All radiology interpretation(s) finalized by discharge Critical Care Time 2 Critical Care Time: Critical Care Time: No Discharge Plan Discharge Patient Disposition: Home Clinical Impression: Intermittent right upper quadrant abdominal pain, Nausea, Acute epigastric pain Condition: Stable Prescriptions: New hydrocodone-acetaminophen 5-325 mg tablet 1 tab PO Q4H PRN (Reason: pain) Qty: 10 0RF Rx Instructions: No alcohol use, driving or additional Tylenol with this medication ondansetron 4 mg tablet,disintegrating 4 mg PO .q6-8h PRN (Reason: nausea and vomiting) Qty: 10 0RF Discharge Orders: Discharge ED (Routine); Ordered 05/18/25 Ordered By: Georges Mcbride Referrals: Fouzia Nelson MD [Primary Care Provider, Family Practice] Juanjo Moore MD [Physician, General Surgery] Discharge Diet: Low Fat Discharge Activity: Increase activity as tolerated Patient Instructions: Abdominal Pain (ED), Opioid Safety, Pain Management, Patient Portal & Lisa Instructions, Low Fat Diet (ED) Activity Restrictions/Additional Instructions: Take the medications as directed. Your prescriptions were sent electronically to the [facility] pharmacy in [place]. Rest, increase fluids. Follow a no fat or low-fat diet. Follow-up with general surgery for further evaluation and treatment. Call for an appointment. Avoid activities that make the pain worse. [id number] stool softener such as Colace or MiraLAX to help with constipation. Return to the emergency department with any worsening symptoms. Print Language: Georgian Coding Level of Care Code ED Call Center Support Representative for Vonda Anderson
[2025-05-18] MEDS: iohexol 350 mg/mL 500 mL Btl (per mL) IV (14:52)
[2025-05-18 15:16] LABS: Glucose Urine UA Negative (Normal); Nitrate Urine Negative (Negative); Specific Gravity, Urine 1.019 (1.005-1.030)
[2025-05-18 15:19] LABS: Add Urine Microscopic? YES
[2025-05-18 15:48] VITALS: BP 119/88; PULSE 78; RESP 16; O2SAT 99
== END 2025-05-18 17:26 | disposition home or self-care (01) ==
PROVIDERS: Emergency Medicine; Emergency Provider Physician Assistant; PCP Family Medicine
DX: R10.11 Right upper quadrant pain (principal); R11.0 Nausea; R10.13 Epigastric pain; I10 Essential (primary) hypertension
CPT/HCPCS: 36415; 74177; 80053; 81001; 83690; 84703; 85025; 96361; 96374; 99285; J1885; J7030

== ENCOUNTER → 2025-07-08 09:12 | Outpatient (BNVA) | payer OTHER, SELFPAY | PROVIDERS: PCP Nurse Practitioner Family; Visit Provider Nurse Practitioner Family | DX: Z78.0 Asymptomatic menopausal state (principal) | CPT/HCPCS: 84443 ==

== ENCOUNTER 2025-08-07 09:49 | Outpatient (CLI) | payer OTHER, SELFPAY ==
--- NOTE | 2025-08-07 09:40 | MM_ITS ---
WS: [id number] BILATERAL SCREENING DIGITAL TOMOSYNTHESIS MAMMOGRAM WITH CAD HISTORY: Z12.39 - Encounter for other screening for malignant neop... COMPARISON: None available. Bilateral CC and MLO views with tomosynthesis and synthetic mammography submitted. Computer aided detection analyzed. Breast composition: The breasts are heterogeneously dense, which may obscure small masses. No suspicious masses, microcalcifications or architectural distortion. Intramammary lymph node LEFT axillary tail. MM/MM scr tomosynthesis [id number] IMPRESSION: BI-RADS: 2 - Benign FOLLOW UP: 1 Year Follow-up
== END 2025-08-07 09:50 | disposition home or self-care (01) ==
LOC: MOBLMAM 09:50
PROVIDERS: PCP Nurse Practitioner Family; Visit Provider Nurse Practitioner Family
DX: Z12.31 Encounter for screening mammogram for malignant neoplasm of breast (principal); R92.333 Mammographic heterogeneous density, bilateral breasts; N63.32 Unspecified lump in axillary tail of the left breast
CPT/HCPCS: 77063; 77067

== ENCOUNTER → 2025-09-13 09:39 | Outpatient (BNVA) | payer OTHER, SELFPAY | PROVIDERS: PCP Nurse Practitioner Family; Visit Provider Nurse Practitioner Women's Health | DX: Z13.1 Encounter for screening for diabetes mellitus (principal); R53.83 Other fatigue; R68.82 Decreased libido; N95.1 Menopausal and female climacteric states; N92.6 Irregular menstruation, unspecified; R39.89 Other symptoms and signs involving the genitourinary system | CPT/HCPCS: 82306; 82607; 82670; 82728; 82746; 83001; 83036; 83540; 84270; 84402; 84403; 87086 ==

== ENCOUNTER → 2025-09-26 10:47 | Outpatient (BNVA) | payer OTHER, SELFPAY | PROVIDERS: PCP Nurse Practitioner Family; Visit Provider Podiatrist Foot & Ankle Surgery | DX: M25.572 Pain in left ankle and joints of left foot (principal); M25.571 Pain in right ankle and joints of right foot; M72.2 Plantar fascial fibromatosis | CPT/HCPCS: 73610; 73630 ==

== ENCOUNTER 2025-10-01 09:30 | Emergency (ER) | payer OTHER, SELFPAY ==
[2025-10-01] VITALS (8 sets, daily range): BP systolic 99–130; BP diastolic 64–84; PULSE 60–93; RESP 14–20; TEMP 36.6; O2SAT 96–100
--- NOTE | 2025-10-01 10:17 | CT_ITS ---
WS: [id number] CT ABDOMEN AND PELVIS WITH CONTRAST HISTORY: abd pain, low to mid abdomen pain. TECHNIQUE: Imaging performed of the abdomen and pelvis with IV contrast. Single phase imaging of the abdomen. Coronal and sagittal reformats are submitted. All CT scans at [facility] use at least one of these dose optimization techniques: automated exposure control; mA and/or kV adjustment per patient size (includes targeted exams where dose is matched to clinical indication); or iterative reconstruction. IV CONTRAST: Omnipaque 350; 100 mL IV. Oral contrast: No DLP: 458.03 mGy.cm COMPARISON: 05/18/2025 Lower thorax: Lung bases are clear. Heart is normal size. No hiatal hernia. Liver/biliary system: Normal size with no intrahepatic dilatation. Gallbladder: Normal. No gallstones or wall thickening. No pericholecystic fluid. Pancreas: Normal size pancreas and pancreatic duct. No adjacent inflammation. Spleen: Normal size spleen. No mass or infarct. Adrenal glands: Normal. Right kidney: Normal. Left kidney: Normal. Aorta: Normal. Lymphadenopathy: None. Free fluid: None. GI tract: No GI tract obstruction. No colitis. No evidence for appendicitis. Abdominal wall: Fat containing umbilical hernia. Pelvis: There is a small amount of free fluid in the pelvis. Amount of fluid is physiologic. Hounsfield units are slightly elevated within the fluid. Uterus is absent. Collapsing corpus luteum cyst LEFT ovary. This may be the source of the blood. Small follicles are identified within each ovary. Ovaries are small caliber. Bones: Unremarkable. CT/CT abdomen pelvis w con* [id number] IMPRESSION: 1. Small amount of physiologic free fluid in the pelvis. Hounsfield units are slightly elevated suggesting this may be a small amount of hemoperitoneum. 2. Enhancing, collapsing corpus luteal cyst within the LEFT ovary. There is a small break in the wall of the corpus luteum suggesting this may be a site of the hemorrhage. 3. No GI tract obstruction or colitis. 4. Prior hysterectomy.
--- NOTE | 2025-10-01 10:18 | W.ED.ABDPA2 ---
HPI - Abdominal Pain General: Chief Complaint: Abdominal Pain Stated Complaint: lower abdominal pain Time Seen by Provider: 10/01/25 10:14 Source: patient Mode of arrival: ambulatory Limitations: no limitations History of Present Illness: 40-year-old female states that she has been having suprapubic abdominal pain since this morning. States pains been very sharp in nature much worse with palpation. She denies any dysuria denies any vaginal discharge. Has had a history of a partial hysterectomy. Denies any vomiting or diarrhea rates her pain a 7 out of 10 currently. Related Data Previous Rx's ?Medication ?Instructions ?Recorded estradiol 0.01% (0.1 mg/gram) 1 g vaginal .twice weekly #42.5 09/13/25 vaginal cream (Estrace) grams azithromycin 250 mg tablet See Rx Instructions PO .COMPLEX #6 09/16/25 tabs clobetasol 0.05 % topical ointment 1 applic topical BID PRN vulvar 09/27/25 itching #30 grams progesterone micronized 100 mg 100 mg PO BEDTIME #90 caps 10/01/25 capsule Allergies Allergy/AdvReac Type Severity Reaction Status Date / Time No Known Allergies Allergy Verified 09/26/25 06:59 Review of Systems GI: Reports: abdominal pain PFS ED PFSH: Medical History (Updated 10/01/25 @ 12:26 by Frances Evangelista MD) Patient denies medical problems Patient denies history of PE/DVT/clotting disorders, asthma, lung, liver heart, thyroid, kidney disease, hypertension or diabetes. PCP: Dr. Dia Surgical History S/P hysterectomy (~01/02/20) TVH, anterior colporrhaphy with mid urethral sl[place] [facility] [place] of midurethral sling procedure (~01/02/20) performed at same time as [facility] History of knee surgery Left knee, open surgery for torn ligament History of tubal ligation (~11/2004) Laparoscopic bilateral fallopian injury sterilization performed by Dr. Plascencia on 12/11/2004. Operative reports have been reviewed and scanned into the chart Family History Mother Hypertension Heart disease Family/Other Breast cancer Maternal great aunt Unknown Patient denies medical problems Denies family history of: Diabetes, Stroke, Hypercholesterolemia, Thyroid Problems, Ovarian Cancer, Uterine Cancer, Colon Cancer Social History Smoking and tobacco/nicotine status: never used tobacco/nicotine Second hand smoke exposure: No Alcohol intake: never Substance/Drug Use: never Lives independently: Yes Household members: spouse Marital status: service: No Current occupational status: unemployed Current gender identity: Female Special flavia needs: No Agree to transfusion: Yes Physical Exam Const: COMMON NORMALS: no acute distress, patient oriented x3 and healthy appearing HENMT: COMMON NORMALS: normocephalic and atraumatic HEAD & SCALP: normocephalic and atraumatic Neck/C-Spine: COMMON NORMALS: full ROM and supple Chest: COMMONS NORMALS: normal inspection of the chest Resp: COMMON NORMALS: normal respiratory effort, No retractions, No use of accessory muscles and clear to auscultation bilaterally AUSCULTATION: clear to auscultation bilaterally Cardio: COMMON NORMALS: regular rate, regular rhythm and No murmurs present (Cardio) RATE: regular rate RHYTHM: regular rhythm GI: COMMON NORMALS: Normal to inspection, nondistended, normoactive bowel sounds present, Soft to palpation and no masses PALPATION: Yes Soft to palpation and Yes Tenderness to palpation present (GI) (suprabic) Extremity: COMMON NORMALS: normal to inspection and full ROM Neuro: COMMON NORMALS: patient oriented x3, moves all extremities and no focal motor deficits Psych: COMMON NORMALS: mental status grossly normal, Normal thought process present and cooperative THOUGHT PROCESS: Normal thought process present Skin: COMMON NORMALS: no rashes or lesions noted and no wounds GENERAL SKIN EXAM: no rashes or lesions noted Course Vital Signs: Vital signs: Vital Signs Temperature 97.9 F 10/01/25 09:35 Pulse Rate 93 10/01/25 09:35 Respiratory Rate 14 10/01/25 10:54 Blood Pressure 130/84 10/01/25 09:35 Pulse Oximetry 100 10/01/25 10:54 Oxygen Delivery Me thod Room Air 10/01/25 09:35 MDM - Abdominal Pain Medical Decision Making Patient presents with lower abdominal pain differential includes appendicitis, diverticulitis, acute cystitis. Blood work here showed no significant abnormalities. Her pain has improved here with pain medicine. CT scan does show a corpus luteal cyst likely a small rupture saw small amount of free fluid in the abdomen. No signs of large hemorrhage. She is stable for discharge at this time she is take Motrin Tylenol for pain at home I did go over all these findings with her she is return if worsening she understands agrees to plan. Medical Records I reviewed the patient's medical records. Lab Data I reviewed the patient's lab results. 10/01/25 10:18 10/01/25 10:18 Labs/Radiology: Radiology Impressions Abdomen/Pelvis CT 10/01/25 10:17 IMPRESSION: 1. Small amount of physiologic free fluid in the pelvis. Hounsfield units are slightly elevated suggesting this may be a small amount of hemoperitoneum. 2. Enhancing, collapsing corpus luteal cyst within the LEFT ovary. There is a small break in the wall of the corpus luteum suggesting this may be a site of the hemorrhage. 3. No GI tract obstruction or colitis. 4. Prior hysterectomy. Laboratory Results WBC 8.49 10^3/uL (3.29-11.43) 10/01/25 10:18 RBC 4.80 10^6/uL (3.85-5.65) 10/01/25 10:18 Hgb 14.50 g/dL (11.27-16.99) 10/01/25 10:18 Hct 43.0 % (36-47) 10/01/25 10:18 MCV 89.6 fl (85-98) 10/01/25 10:18 MCH 30.2 pg (27-33) 10/01/25 10:18 MCHC 33.7 g/dL (30-55) 10/01/25 10:18 RDW 12.2 % (12.1-15.1) 10/01/25 10:18 Plt Count 252 10^3/cmm (157-399) 10/01/25 10:18 MPV 9.5 fL (7.4-10.4) 10/01/25 10:18 Neut % (Auto) 56.9 % 10/01/25 10:18 Lymph % (Auto) 30.9 % 10/01/25 10:18 [place] % (Auto) 7.5 % 10/01/25 10:18 Eos % (Auto) 3.5 % 10/01/25 10:18 Baso % (Auto) 0.7 % 10/01/25 10:18 Neut # (Auto) 4.83 10^3/uL (1.8-7.7) 10/01/25 10:18 Lymph # (Auto) 2.6 10^3/uL (0.8-4.8) 10/01/25 10:18 [place] # (Auto) 0.6 10^3/uL (0.2-0.9) 10/01/25 10:18 Eos # (Auto) 0.3 10^3/uL (0.0-0.8) 10/01/25 10:18 Baso # (Auto) 0.1 10^3/uL (0.0-0.1) 10/01/25 10:18 Nucleated RBC % (auto) 0 % 10/01/25 10:18 Nucleated RBCs # 0.0 /100WBC 10/01/25 10:18 Sodium 141 mmol/L (136-145) 10/01/25 10:18 Potassium 4.5 mmol/L (3.5-5.1) 10/01/25 10:18 Chloride 105 mmol/L (98-107) 10/01/25 10:18 Carbon Dioxide 23 mmol/L (22-29) 10/01/25 10:18 Anion Gap 17.5 (5-19) 10/01/25 10:18 BUN 11 mg/dL (6-20) 10/01/25 10:18 Creatinine 0.9 mg/dL (0.5-0.9) 10/01/25 10:18 GFR Calculation 68.7 mL/min (90-130) L 10/01/25 10:18 Glucose 80 mg/dL (65-115) 10/01/25 10:18 Calculated Osmolality 290 mOsm/kg (285-295) 10/01/25 10:18 Calcium 9.3 mg/dL (8.5-10.5) 10/01/25 10:18 Total Bilirubin 0.3 mg/dL (0.15-1.2) 10/01/25 10:18 AST 17 U/L (0-32) 10/01/25 10:18 ALT 13 U/L (0-33) 10/01/25 10:18 Alkaline Phosphatase 76 U/L (35-105) 10/01/25 10:18 Total Protein 7.8 g/dL (6.6-8.7) 10/01/25 10:18 Albumin 4.5 g/dL (3.5-5.2) 10/01/25 10:18 Globulin 3.3 g/dL (1.3-4.6) 10/01/25 10:18 Lipase 64 U/L (13-60) H 10/01/25 10:18 HCG, Qual Negative (Negative) 10/01/25 10:18 Urine Color Yellow (Yellow) 10/01/25 10:30 Urine Appearance Clear (CLEAR) 10/01/25 10:30 Urine pH 5.5 (5-7) 10/01/25 10:30 Ur Specific [place] 1.012 (1.005-1.030) 10/01/25 10:30 Urine Protein Negative (Negative) 10/01/25 10:30 Urine Glucose (UA) Negative (Normal) 10/01/25 10:30 Urine Ketones Negative (Negative) 10/01/25 10:30 Urine Blood Negative (Negative) 10/01/25 10:30 Urine Nitrate Negative (Negative) 10/01/25 10:30 Urine Bilirubin Negative (Negative) 10/01/25 10:30 Urine Urobilinogen 0.2 mg/dL (Negative) 10/01/25 10:30 Ur Leukocyte Esterase Negative (Negative) 10/01/25 10:30 Urine RBC 3-5 /hpf (0-2) 10/01/25 10:30 Urine WBC 0-5 /hpf (0-5) 10/01/25 10:30 Ur Squamous Epith Cells 0-5 /hpf (0-5) 10/01/25 10:30 Amorphous Sediment Not Reportable 10/01/25 10:30 Urine Bacteria None seen /hpf (NONE) 10/01/25 10:30 Hyaline Casts 0-4 /lpf H 10/01/25 10:30 All radiology interpretation(s) finalized by discharge Discharge Plan Discharge Patient Disposition: Home Clinical Impression: Cyst of left ovary Condition: Stable Prescriptions: No Action estradiol [Estrace] 0.01 % (0.1 mg/gram) cream 1 g vaginal .twice weekly Qty: 42.5 3RF Rx Instructions: space out doses clobetasol 0.05 % ointment 1 applic topical BID PRN (Reason: vulvar itching ) Qty: 30 0RF azithromycin 250 mg tablet See Rx Instructions PO .COMPLEX Qty: 6 0RF Rx Instructions: For 250 mg dose pack: take 500 mg today (day 1), then 250 mg for 4 days (days 2-5) PO progesterone micronized 100 mg capsule 100 mg PO BEDTIME Qty: 90 0RF Discharge Orders: Discharge ED (Routine); Ordered 10/01/25 Ordered By: Frances Evangelista Referrals: Kimberly Rodríguez FNP [Primary Care Provider, Family Practice] - 4-7 days Discharge Diet: Advance as tolerated Discharge Activity: Resume usual activity Patient Instructions: Ovarian Cyst (ED) Print Language: German Coding Level of Care Code ED Tap Puller for Vonda Anderson
[2025-10-01 10:41] LABS: Hematocrit 43.0 % (36-47); Hemoglobin 14.50 g/dL (11.27-16.99); Mean Corpuscular HGB Conc 33.7 g/dL (30-55); Mean Corpuscular Hemoglobin 30.2 pg (27-33); Mean Corpuscular Volume 89.6 fl (85-98); Nucleated Red Blood Cells % 0 %; Platelet Count 252 10^3/cmm (157-399); Red Blood Count 4.80 10^6/uL (3.85-5.65); White Blood Count 8.49 10^3/uL (3.29-11.43)
[2025-10-01 10:46] LABS: Glucose Urine UA Negative (Normal); Nitrate Urine Negative (Negative); Specific Gravity, Urine 1.012 (1.005-1.030)
[2025-10-01 10:49] LABS: Add Urine Microscopic? YES
[2025-10-01] MEDS: ondansetron 2 mg/ML SDV 2 mL 4 MG IVP (10:53)
[2025-10-01] MEDS: morphine 4 mg/mL SDV 1 mL IVP (10:54)
[2025-10-01 11:07] LABS: UA Slide Review UA Slide Review Perf
[2025-10-01 11:07] LABS: HCG, Serum Qual Negative (Negative)
[2025-10-01 11:10] LABS: Alanine Aminotransferase 13 U/L (0-33); Albumin Level 4.5 g/dL (3.5-5.2); Alkaline Phosphatase 76 U/L (35-105); Aspartate Amino Transferase 17 U/L (0-32); Blood Urea Nitrogen 11 mg/dL (6-20); Calcium 9.3 mg/dL (8.5-10.5); Carbon Dioxide 23 mmol/L (22-29); Chloride 105 mmol/L (98-107); Globulin 3.3 g/dL (1.3-4.6); Glucose 80 mg/dL (65-115); Lipase 64 U/L (13-60); Osmolality Calculated 290 mOsm/kg (285-295); Sodium 141 mmol/L (136-145); Total Protein 7.8 g/dL (6.6-8.7)
[2025-10-01 11:15] LABS: Anion Gap 17.5 (5-19); Potassium 4.5 mmol/L (3.5-5.1)
[2025-10-01] MEDS: iohexol 350 mg/mL 500 mL Btl (per mL) IV (11:52)
== END 2025-10-01 12:48 | disposition home or self-care (01) ==
PROVIDERS: Emergency Provider Emergency Medicine; PCP Nurse Practitioner Family
DX: N83.202 Unspecified ovarian cyst, left side (principal)
CPT/HCPCS: 36415; 74177; 80053; 81001; 83690; 84703; 85025; 96374; 96375; 99285; J2270; J2405; J7030